=== PATIENT | female | born 1990 | race Caucasian/White ===

== ENCOUNTER 2020-12-25 06:37 | Outpatient (CLI) | payer OTHER ==
[~2020-12-25] VITALS: Ht 162.6 cm; Wt 103.6 kg
[2020-12-25] MEDS ORDERED: DESYREL 100MG100 MG PO (08:05)
[2020-12-25] MEDS ORDERED: PEPCID 20MG TAB20 MG PO (08:06)
[2020-12-25] MEDS ORDERED: WELLBUTRIN XL150 MG PO (08:06)
[2020-12-25] MEDS ORDERED: TOVIAZ4 MG PO (08:06)
[2020-12-25 08:07] LABS: HEMOGLOBIN 11.4 g/dl (12.5-16.0); MEAN CELL VOLUME 76 fl (80.0-100.0); MEAN CORPUSCULAR HEMOGLOBIN 25 pg (27.0-31.0); MEAN CORPUSCULAR HGB CONC 33 g/dl (33.0-37.0); MEAN PLATELET VOLUME 11.3 fl (7.4-10.4); PLATELET COUNT 329 K/mm3 (130-400); RED BLOOD COUNT 4.58 M/mm3 (4.10-5.30); REDCELL DISTRIBUTION WIDTH-CV 15.2 % (11.5-14.5)
[2020-12-25] MEDS ORDERED: MIRALAX PA17 GM/Dose PO (08:07)
[2020-12-25 08:08] LABS: HEMATOCRIT 34.7 % (37.0-47.0)
[2020-12-25] MEDS ORDERED: ZOFRAN ODT8 MG PO (08:08)
[2020-12-25] MEDS ORDERED: DEPO-PROVER150 MG/M1 IM (08:09)
[2020-12-25] MEDS ORDERED: PROAIR HFA0.09 MG/AC IH (08:09)
[2020-12-25 08:12] VITALS: BP 143/98; PULSE 85; TEMP 98.3
[2020-12-25 08:14] LABS: CALCIUM 9.3 mg/dL (8.4-10.2); CREATININE, serum 0.84 (0.52-1.25); POTASSIUM 3.8 mmol/L (3.4-5.0)
[2020-12-25 08:43] LABS: INR 1.4 (0.8-3.0); PROTHROMBIN TIME 15.6 SECONDS (9.7-12.8)
[2020-12-25 09:45] VITALS: BP 131/87; PULSE 81
[2020-12-25 10:00] VITALS: BP 136/87; PULSE 80
[2020-12-25 10:15] VITALS: BP 145/90; PULSE 76
[2020-12-25 10:30] VITALS: BP 136/96; PULSE 72
[2020-12-25 10:45] VITALS: BP 145/90; PULSE 78
--- NOTE | 2020-12-25 11:10 | NUR ---
DC instructions reviewed with pt, she expresses understanding. She has tolereated sips of water, refused food prior to DC. Gait steady while transferring to wheelchair. INT DC'd with catheter intact. Pt assisted out to friend's car with belongings.
== END 2020-12-25 11:14 | disposition home or self-care (01) ==
LOC: COL.RAD 06:37
PROVIDERS: Internal Medicine Adult Congenital Heart Disease
DX: I35.0 Nonrheumatic aortic (valve) stenosis (principal); I45.10 Unspecified right bundle-branch block; Z20.822 Contact with and (suspected) exposure to COVID-19
CPT/HCPCS: J2704